=== PATIENT | male | born 1995 | race Caucasian/White ===

== ENCOUNTER 2021-11-18 11:21 | Emergency (ER) | payer MEDICAID, SELFPAY ==
[~2021-11-18] VITALS: Ht 180.3 cm; Wt 113.4 kg
[2021-11-18 11:30] VITALS: BP_SYST 122
--- NOTE | 2021-11-18 11:30 | NUR ---
pt. came in with c/o cough, sore throat and runny nose X 4 days
--- NOTE | 2021-11-18 12:15 | NUR ---
LIV Lindquist in tent examining patient.
[2021-11-18 12:53] VITALS: BP_SYST 122
--- NOTE | 2021-11-18 12:54 | NUR ---
Patient given written and verbal discharge instructions and verbalizes understanding. ER Dr. Loera discussed with patient the results and treatment provided. Patient in stable condition. ID arm band removed. Patient educated on pain management and to follow up with PMD. Pain Scale 3. Opportunity for questions provided and answered.
== END 2021-11-18 12:54 | disposition home or self-care (01) ==
LOC: SED 11:21
DX: U07.1 COVID-19 (principal)
CPT/HCPCS: 99283; C9803; U0003